=== PATIENT | female | born 1975 | race Caucasian/White ===

== ENCOUNTER 2022-10-21 11:48 | Emergency (ER) | payer OTHER ==
[2022-10-21 12:16] VITALS: BP 117/76; PULSE 63; RESP 17; TEMP 97.7; BMI 19.8
[2022-10-21] MEDS ORDERED: LIDOCAINE 5% TOPICAL PATCH TP ONE (13:03)
[2022-10-21] MEDS ORDERED: KETOROLAC TROMETHAMINE 30 MG/1 ML VIAL IM ONE (13:03)
[2022-10-21] MEDS ORDERED: ACETAMINOPHEN 500 MG TABLET (FP) PO ONE (13:04)
[2022-10-21] MEDS ORDERED: ACETAMINOPHEN 325 MG TABLET (FP) ONE (13:09)
[2022-10-21] MEDS ORDERED: LIDOCAINE 5% TOPICAL PATCH ONE ×2 (13:09→13:15)
[2022-10-21] MEDS ORDERED: KETOROLAC TROMETHAMINE 30 MG/1 ML VIAL ONE (13:09)
[2022-10-21] MEDS ORDERED: LIDOCAINE PATCH REMOVAL MC SCH (22:00)
== END 2022-10-21 14:23 | disposition home or self-care (01) ==
LOC: JERFT 11:48
DX: M54.50 Low back pain, unspecified (principal); M54.2 Cervicalgia; M25.562 Pain in left knee; M54.6 Pain in thoracic spine; V44.6XXA Car passenger injured in collision with heavy transport vehicle or bus in traffic accident, initial encounter
CPT/HCPCS: 73562-TC-LT-FY; 99283-25